=== PATIENT | female | born 1945 | race Caucasian/White ===

== ENCOUNTER 2023-04-03 06:37 | Day surgery (SDC) | payer MEDICARE, OTHER, SELFPAY ==
--- NOTE | 2023-04-02 12:21 | PTCARENOTE ---
Addendum entered by Amira Delgadillo RN 04/02/23 12:41:
Patients 1/6 CXR abnormal- reviewed by Dr. Muñiz- no additional interventions required
Original Note:
PAtients 1,4 EKG abnormal- Reviewed by Dr. Muñiz- no additional interventions required
[2023-04-03] VITALS (8 sets, daily range): BP systolic 96–150; BP diastolic 48–78; BMI 15.9
[2023-04-03] MEDS: NORMOSOL-R 1000 IV (09:14)
[2023-04-03] MEDS: Pyridium 200 MG PO (12:20)
[2023-04-09 00:50] LABS: Stone Analysis Mass 135 mg
== END 2023-04-03 14:10 ==
LOC: SDS 06:37
PROVIDERS: ATTENDING PHYSICIAN Specialist
DX: N20.0 Calculus of kidney (principal)
CPT/HCPCS: 52356; 74018; 76000; 82365; C1758; C1894; C2617; J1580

== ENCOUNTER 2023-06-15 06:11 | Day surgery (SDC) | payer MEDICARE, OTHER, SELFPAY ==
[2023-05-31 09:07] VITALS: BMI 16.6
--- NOTE | 2023-06-11 11:48 | PTCARENOTE ---
Lisa at 's office was notified of abnormal urinalysis collected on 05/31/23.
[2023-06-15] VITALS (9 sets, daily range): BP systolic 121–139; BP diastolic 59–68; BMI 16.6
[2023-06-15] MEDS: NORMOSOL-R 1000 IV (06:40)
[2023-06-15] MEDS: DETROL LA 4 MG PO (09:14)
[2023-06-15] MEDS: Pyridium 200 MG PO (09:14)
== END 2023-06-15 11:03 | disposition home or self-care (01) ==
LOC: SDS 06:11
PROVIDERS: ATTENDING PHYSICIAN Specialist; FAMILY PHYSICIAN Internal Medicine
DX: N20.0 Calculus of kidney (principal)
CPT/HCPCS: 52356; 74420; 76000; 87086; C1758; C1894; C2617; J1580

== ENCOUNTER → 2023-09-27 09:15 | Outpatient (REF) | payer MEDICARE, OTHER, SELFPAY | LOC: RAD 09:15 | PROVIDERS: ATTENDING PHYSICIAN Specialist; FAMILY PHYSICIAN Internal Medicine | DX: N20.0 Calculus of kidney (principal) | CPT/HCPCS: 74176 ==

== ENCOUNTER → 2024-07-22 12:05 | Outpatient (REF) | payer MEDICARE, OTHER, SELFPAY | LOC: RAD 12:05 | PROVIDERS: ATTENDING PHYSICIAN Specialist; FAMILY PHYSICIAN Internal Medicine | DX: N20.0 Calculus of kidney (principal) | CPT/HCPCS: 74018; 76775 ==

== ENCOUNTER → 2024-09-01 10:08 | Outpatient (REF) | payer MEDICARE, OTHER, SELFPAY | LOC: HWRAD 10:08 | PROVIDERS: ATTENDING PHYSICIAN Specialist; FAMILY PHYSICIAN Internal Medicine | DX: N20.0 Calculus of kidney (principal) | CPT/HCPCS: 74176 ==

== ENCOUNTER → 2025-02-10 19:05 | Outpatient (REF) | payer MEDICARE, OTHER, SELFPAY | LOC: MRI 19:05 | PROVIDERS: ATTENDING PHYSICIAN Specialist; FAMILY PHYSICIAN Internal Medicine | DX: M25.512 Pain in left shoulder (principal) | CPT/HCPCS: 73221 ==